=== PATIENT | male | born 1970 | race Caucasian/White ===

== ENCOUNTER 2016-09-22 06:13 | Outpatient (CLI) | payer OTHER ==
[2016-09-22 06:46] LABS: Hemoglobin A1c 5.3 % (4.0-6.0)
[2016-09-22 06:52] LABS: ALT (SGPT) 30 U/L (0-55); AST (SGOT) 18 U/L (5-34); Alkaline Phosphatase 70 U/L (40-150); Bilirubin, Direct 0.2 mg/dL (0.1-0.3); Bilirubin, Total 0.5 mg/dL (0.2-1.2); LDL Cholesterol, Calculated 70 mg/dL; Protein, Total 6.7 g/dL (6.0-8.3)
== END 2016-09-22 06:14 | disposition home or self-care (01) ==
LOC: NAV LAB 06:13
PROVIDERS: ATTEND Pediatrics Pediatric Rheumatology
DX: E78.5 Hyperlipidemia, unspecified (principal)
CPT/HCPCS: 36415; 80061; 80076; 83036